=== PATIENT | male | born 1955 | race Caucasian/White ===

== ENCOUNTER 2021-01-11 06:21 | Day surgery (SDC) | payer MEDICAID ==
[2021-01-11] MEDS ORDERED: Sodium Chloride 0.9% 1,000 ML IV SCH (07:00)
[2021-01-11] MEDS ORDERED: Midazolam 1 MG/ML 2 ML SDV ONE (07:38)
[2021-01-11] MEDS ORDERED: fentaNYL 100 MCG/2 ML SDV ONE (07:38)
[2021-01-11] MEDS ORDERED: Propofol 200 MG/20 ML SDV ONE (07:38)
--- NOTE | 2021-01-11 12:14 | OR ---
DATE OF PROCEDURE: 01/11/2021 SURGEON: Jed Fontenot MD PROCEDURE: Colonoscopy. FINDINGS: Diverticulosis, mild to moderate, mostly concentrated in sigmoid colon. COMPLICATIONS: None. PRINCIPAL AUTOMATION ENGINEER: None. PREOPERATIVE DIAGNOSIS: Screening colonoscopy. POSTOPERATIVE DIAGNOSIS: Screening colonoscopy. RISKS: Risks, benefits, alternatives, and limitations including, but not limited to infection, bleeding, perforation, false positives, false negatives were explained to the patient who wished to proceed. PROCEDURE IN DETAIL: The patient was placed in left lateral decubitus position. Digital rectal exam was performed without abnormality. Scope was introduced and advanced atraumatically to the ileocecal valve. A photo was taken of the appendiceal orifice. Scope was brought back to the ascending, transverse, descending colon, and retroflexed. No evidence of old or new blood. No masses. No polyps. Diverticulosis described as [id number] without evidence of diverticulitis or bleeding. No abnormalities on retroflexion. Greater than 8 minutes was spent removing the scope. The prep was acceptable, approximately 90% of luminal surface could be seen. Recommend repeat colonoscopy in 10 years unless the patient develops a family history of colorectal cancer. Jed Fontenot MD /[id number]
== END 2021-01-11 09:30 | disposition home or self-care (01) ==
LOC: JP.SDS 06:21
PROVIDERS: ATTEND Surgery
DX: Z12.11 Encounter for screening for malignant neoplasm of colon (principal); K57.30 Diverticulosis of large intestine without perforation or abscess without bleeding; E78.5 Hyperlipidemia, unspecified
CPT/HCPCS: 45378; J2250; J2704; J3010; J7030

== ENCOUNTER 2023-06-26 16:25 | Emergency (ER) | payer MEDICARE, BC ==
[2023-06-26 17:13] LABS: CORONAVIRUS COVID-19 NAA NEGATIVE (NEGATIVE); INFLUENZA A NAA NEGATIVE (NEGATIVE); INFLUENZA B NAA NEGATIVE (NEGATIVE); RESPIRATORY SYNCYTIAL VIR NAA NEGATIVE (NEGATIVE)
[2023-06-26] MEDS: Sodium Chloride 0.9% 1,000 ML IV SCH ×2 (17:30→19:08)
[2023-06-26] MEDS: Ondansetron 4 MG/2 ML SDV IVPUSH ONE (17:30)
[2023-06-26 17:33] LABS: BASOPHILS PERCENT AUTO 0.3 % (0.1-1.3); EOSINOPHILS PERCENT AUTO 0.3 % (0.0-5.4); HEMATOCRIT 51.7 % (38.4-49.7); IMMATURE GRAN ABSOLUTE AUTO 0.03 K/uL (0.00-0.23); IMMATURE GRAN PERCENT AUTO 0.4 % (0.0-0.7); LYMPHOCYTES ABSOLUTE AUTO 0.45 K/uL (0.8-3.3); LYMPHOCYTES PERCENT AUTO 6.3 % (11.4-47.7); MEAN CORPUSCULAR HEMOGLOBIN 30.3 pg (31.6-35.5); MEAN CORPUSCULAR HGB CONC 35.2 g/dL (31.6-35.5); MEAN CORPUSCULAR VOLUME 86.2 fL (81.4-99.0); MONOCYTES ABSOLUTE AUTO 0.42 K/uL (0.20-0.90); MONOCYTES PERCENT AUTO 5.9 % (3.3-12.6); NEUTROPHILS ABSOLUTE AUTO 6.18 K/uL (1.0-7.6); NEUTROPHILS PERCENT AUTO 86.8 % (40.0-78.1); PLATELET COUNT,PLT 131 K/uL (130-375); WHITE BLOOD CELL COUNT,WBC 7.1 K/uL (3.2-11.0)
[2023-06-26 17:34] LABS: BASOPHILS ABSOLUTE AUTO 0.02 K/uL (0.00-0.10); EOSINOPHILS ABSOLUTE AUTO 0.02 K/uL (0.00-0.40); HEMOGLOBIN 18.2 g/dL (12.9-16.9)
[2023-06-26 17:51] LABS: A/G RATIO 1.1 (1.2-2.2); ALANINE AMINOTRANSFERASE,ALT 22 U/L (12-78); ALBUMIN 3.5 g/dL (3.4-5.0); ALKALINE PHOSPHATASE 62 U/L (46-116); ASPARTATE AMNIOTRANSFERASE,AST 29 U/L (15-37); BILIRUBIN TOTAL 1.1 mg/dL (0.2-1.0); BLOOD UREA NITROGEN,BUN 23 mg/dL (7-18); CALCIUM 8.4 mg/dL (8.5-10.1); CARBON DIOXIDE,CO2 22 mmol/L (21-32); CHLORIDE,CL 103 mmol/L (100-108); CREATININE 1.1 mg/dL (0.8-1.3); ESTIMATED GFR 74 mL/min (>60); GLUCOSE RANDOM 116 mg/dL (74-106); MAGNESIUM 1.9 mg/dL (1.8-2.4); PROTEIN TOTAL,TP 6.8 g/dL (6.4-8.2); SODIUM,NA 138 mmol/L (140-148)
== END 2023-06-26 20:17 | disposition home or self-care (01) ==
LOC: JP.ED 16:25
DX: E86.0 Dehydration (principal); E78.00 Pure hypercholesterolemia, unspecified; K21.9 Gastro-esophageal reflux disease without esophagitis; Z79.899 Other long term (current) drug therapy; Z88.0 Allergy status to penicillin; Z88.7 Allergy status to serum and vaccine; Z88.8 Allergy status to other drugs, medicaments and biological substances
CPT/HCPCS: 0241U; 36415; 80053; 83735; 85025; 96361; 96374; 99284; J2405; J7030